=== PATIENT | female | born 1985 | race Hispanic/Latino ===

== ENCOUNTER 2017-06-30 08:21 | Inpatient (IN) | payer MEDICAID ==
[2017-06-30] MEDS ORDERED: BRETHINE SUB-Q PRN (08:53)
[2017-06-30] MEDS ORDERED: SUBLIMAZE IV PRN (08:53)
[2017-06-30] MEDS ORDERED: ePHEDrine SULFATE IV PRN (08:53)
[2017-06-30] MEDS ORDERED: MINERAL OIL PO PRN (08:53)
[2017-06-30] MEDS ORDERED: PITOCin/NS 20 UNIT/1000ML DRIP 20 UNITS/1,000 ML BAG IV SCH (09:00)
--- NOTE | 2017-06-30 09:03 | History and Physical Report ---
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 Infection History Hx of STD: none HIV Risk Eval: no Hepatitis B Risk Eval: low risk Personal hx. of genital herpes: no Partner hx. of genital herpes: no Rash, Viral, or Febrile illness since last LMP? no Varicella/Chicken Pox Status: Previous Disease TB Risk: no Genetic History Congenital Heart Defect: Mom: no Dad: no Marcin Disease: Mom: no Dad: no Thalassemia Mom: no Dad: no Neural Tube Defect Mom: no Dad: no Down's Syndrome Mom: no Dad: no Harley-Sachs Mom: no Dad: no Sickle Cell Disease/Trait Mom: no Dad: no Hemophilia Mom: no Dad: no Muscular Dystrophy Mom: no Dad: no Cystic Fibrosis Mom: no Dad: no [place] Chorea Mom: no Dad: no Mental Retardation Mom: no Dad: no Fragile X Mom: no Dad: no Other Genetic/Chromosomal Disorder Mom: no Dad: no Child w/other defect Mom: no Dad: no Enviromental Exposures Xray Exposure: no Medication, drug, or alcohol use since LMP: no Chemical/Other Exposure: no Exposure to Cat Liter: no Hx of Parvovirus (Fifth Disease): no 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 Current Allergies (reviewed today): No known allergies Past History Past Medical History: asthma Past Surgical History: other (see HPI) - Obstetrical History Expected Date of Delivery: 06/18/17 Actual Gestation: 41 Week(s) 5 Day(s) : 1 Para: 0 Hx # Term Pregnancies: 0 Number of Pregnancies: 0 Spontaneous Abortions: 0 Induced : 0 Number of Living Children: 0 Medications and Allergies Allergies Allergy/AdvReac Type Severity Reaction Status Date / Time adhesive Allergy Itching Verified 06/30/17 10:17 Home Medications Medication Instructions Recorded Confirmed Last Taken Type No Known Home Medications [No 06/30/17 06/30/17 Unknown History Reported Home Medications] Active Meds: Active Medications Ephedrine Sulfate (Ephedrine Sulfate) 10 mg IV Q2M PRN PRN Reason: Hypotension Review of Systems All systems: negative - Vital Signs Vital signs: Vital Signs Pulse BP 69 111/66 06/30/17 08:57 06/30/17 08:57 Temp Pulse Resp BP Pulse Ox 69 111/66 06/30/17 08:57 06/30/17 08:57 - Physical Exam Breasts: Positive: normal Cardiovascular: Regular rate Lungs: Positive: Clear to auscultation, Normal air movement Abdomen: Positive: normal appearance, soft, normal bowel sounds Genitourinary (Female): Positive: normal external genitalia, normal perenium Vulva: both: normal Vagina: Positive: normal moisture Uterus: Positive: normal size, normal contour Extremities: Positive: normal Deep Tendon Reflex Grade: Normal +2 - Obstetrical FHR: category 1 Uterine Contraction Monitor Mode: External Cervical Dilatation: 0 station: 30 Uterine Contraction Pattern: Irregular Uterine Tone Measurement Phase: Resting Uterine Contraction Intensity: Mild Results Result Diagrams: 06/30/17 Unknown All other labs normal. Assessment and Plan 31y/o @ 41+5 weeks, GBS neg. u/s EFW 06/26/17 7#1oz. cervix unfavorable so will do low dose pit today, allow patient to have dinner and if no change will do cervidil for cervical ripening tonight. Discussed serial induction expectations. All questions address, patient and family verbalize understanding. . - Patient Problems (1) 41 weeks gestation of Current Visit: Yes Status: Acute
[2017-06-30] MEDS ORDERED: XYLOCAINE 2% INFILTRATI ONE (10:16)
[2017-06-30] MEDS ORDERED: ZOFRAN IV PRN (10:17)
[2017-06-30] MEDS: LACTATED RINGERS 1,000 ML IV SCH ×2 (10:29→19:33)
[2017-06-30] MEDS: PITOCin/NS 30 UNIT/500ML 30 UNITS/500 ML BAG IV SCH ×2 (10:36→11:22)
[2017-06-30 11:00] LABS: Hematocrit 37.3 % (30.3-42.9); Hemoglobin 12.7 gm/dl (10.1-14.3); Mean Corpuscular HGB Conc 34 % (30-34); Mean Corpuscular Hemoglobin 31 pg (28-32); Mean Corpuscular Volume 90 fl (79-97); Platelet Count 240 K/mm3 (140-440); Red Blood Count 4.14 M/mm3 (3.65-5.03); Red Cell Distribution Width 13.4 % (13.2-15.2)
[2017-06-30] MEDS ORDERED: AMBIEN PO PRN (16:18)
[2017-06-30] MEDS ORDERED: CERVIDIL VG ONE (17:00)
--- NOTE | 2017-07-01 04:02 | Event Note ---
Date: 07/01/17 patient ctx [id number] and very uncomfortable. cervidil accidentally pulled when patient was moving in bed. Plan for patient to do AM care and regular breakfast with reactive tracing, then re-start pitocin this AM..
[2017-07-01] MEDS ORDERED: PITOCin/NS 30 UNIT/500ML 30 UNITS/500 ML BAG IV SCH (08:00)
[2017-07-01] MEDS: LACTATED RINGERS 1,000 ML IV SCH (09:21)
[2017-07-01] MEDS: PITOCin/NS 30 UNIT/500ML 30 UNITS/500 ML BAG IV SCH ×4 (10:20→12:13)
--- NOTE | 2017-07-01 10:22 | Progress Note ---
Subjective - Subjective Date of service: 07/01/17 Principal diagnosis: G1 IUP @ 41 wk+6d, IOL Interval history: Cervidil came out at 0400, pt was nilo frequently, now in irregular pattern. My exam EFW 7-8#, cx post to mid-pos, 1.5 cm, 80%, -4. Discussed with patient and family that baby up high and may not be coming down in proper position. Mentioned that c/s rate in this clinical scenario is high, at least 50% but that we will increase Pitocin and attempt to rupture membranes, which is not possible at this time. They expressed understanding. Objective - Vital Signs Vital Signs: Vital Signs - 12hr 07/01/17 07/01/17 07/01/17 00:34 00:38 06:15 Temperature 98 F 98.6 F Pulse Rate 60 60 62 Respiratory 16 16 Rate Blood Pressure 105/63 Blood Pressure 105/63 101/60 [Right] O2 Sat by Pulse Oximetry 07/01/17 07/01/17 07/01/17 06:18 08:37 08:43 Temperature 97.2 F L Pulse Rate 62 65 65 Respiratory 16 Rate Blood Pressure 101/60 111/62 Blood Pressure 111/62 [Right] O2 Sat by Pulse 98 Oximetry - Labs Labs: Laboratory Results - last 24 hr 06/30/17 06/30/17 06/30/17 09:40 09:40 Unknown WBC 9.6 RBC 4.14 Hgb 12.7 Hct 37.3 MCV 90 MCH 31 MCHC 34 RDW 13.4 Plt Count 240 RPR Nonreactive Blood Type O POSITIVE Antibody Screen Negative
[2017-07-01] MEDS: SUBLIMAZE IV PRN ×2 (14:21→16:33)
--- NOTE | 2017-07-01 14:48 | Event Note ---
Date: 07/01/17 Now 5-6, 100%, -3, anterior after about 5 hours (prior check at 1000 was 1.5)-- attempted AROM but no fluid obtained ?. So far making good progress, does not want epidural at present.
--- NOTE | 2017-07-01 17:07 | Anesthesia Consultation ---
Anesthesia Consult and Med Hx - Airway Anesthetic Teeth Evaluation: Good ROM Head & Neck: Adequate Mental/Hyoid Distance: Adequate Mallampati Class: Class II Intubation Access Assessment: Good - Pulmonary Exam CTA: Yes - Cardiac Exam Cardiac Exam: RRR - Pre-Operative Health Status ASA Pre-Surgery Classification: ASA2 Proposed Anesthetic Plan: Epidural, Spinal - Pulmonary Hx Asthma: No COPD: No Hx Pneumonia: No - Cardiovascular System Hx Hypertension: No - Central Nervous System Hx Seizures: No Hx Psychiatric Problems: No - Endocrine Hx Renal Disease: No Hx End Stage Renal Disease: No Hx Hypothyroidism: No Hx Hyperthyroidism: No - Hematic Hx Anemia: No Hx Sickle Cell Disease: No - Other Systems Hx Alcohol Use: No
[2017-07-01] MEDS ORDERED: ePHEDrine SULFATE IV PRN (17:08)
[2017-07-01] MEDS ORDERED: NARCAN 2 MG/2 ML IV PRN (17:08)
--- NOTE | 2017-07-01 17:08 | Anesthesia Day of Surgery ---
Anesthesia Day of Surgery - Day of Surgery Patient Examined: Yes Patient H&P Reviewed: Yes Patient is NPO: Yes
[2017-07-01] MEDS ORDERED: XYLOCAINE 2% INFILTRATI ONE (17:17)
[2017-07-01] MEDS ORDERED: fentaNYL-BUPIV 2 MCG/ML-0.125% 200 MCG/100 ML BAG EPIDURAL SCH (18:00)
--- NOTE | 2017-07-01 18:00 | Procedure Note ---
OB Delivery Note - Delivery Date of Delivery: 07/01/17 Surgeon: KVNG CORTES Estimated blood loss: 500cc - Vaginal Delivery presentation: vertex Delivery position: OA Delivery induction: misoprostol Delivery augmentation: rupture of membranes, pitocin Delivery monitor: external FHT, external uterine Route of delivery: (mild dystocia, responded to traction and Arya) Delivery placenta: spontaneous Delivery cord: 3 umbilical vessels (tight cord around shoulder) Episiotomy: midline Delivery laceration: 2nd degree Delivery repair: vicryl (2-0 and 3-0) Anesthesia: local Delivery comments: mild shoulder dystocia, exascerbated by tight shoulder cord. Moderate bright red bleeding prior to del but I was not able to find any source for this as cervix and vaginal side taylor had no tears but lower vagina had abrasions. - Infant A at 1 minute: 7 at 5 minutes: 9 Infant Gender: Male (7#8oz, resp came and suctioned out baby who was a little stunned)
[2017-07-01] MEDS ORDERED: BENADRYL PO PRN (18:03)
[2017-07-01] MEDS ORDERED: DULCOLAX PR PRN (18:03)
[2017-07-01] MEDS ORDERED: PHENERGAN PO PRN (18:03)
[2017-07-01] MEDS ORDERED: LANSINOH TP PRN (18:03)
[2017-07-01] MEDS ORDERED: TUCKS PAD TP PRN (18:03)
[2017-07-01] MEDS ORDERED: MILK OF MAGNESIA PO PRN (18:03)
[2017-07-01] MEDS ORDERED: ZOFRAN IV PRN (18:03)
[2017-07-01] MEDS ORDERED: TYLENOL PO PRN (18:03)
[2017-07-01] MEDS ORDERED: PHENERGAN PR PRN (18:03)
[2017-07-01] MEDS ORDERED: NORCO 5/325 PO PRN (18:03)
[2017-07-01] MEDS ORDERED: SODIUM CHLORIDE FLUSH SYRINGE 10 ML IV SCH (19:00)
[2017-07-01] MEDS: MOTRIN PO SCH (23:35)
[2017-07-01] MEDS: COLACE PO SCH (23:35)
[2017-07-02 05:23] LABS: Hemoglobin 10.4 gm/dl (10.1-14.3)
[2017-07-02 05:31] LABS: Hematocrit 31.9 % (30.3-42.9)
[2017-07-02] MEDS: MOTRIN PO SCH ×2 (05:33→12:44)
[2017-07-02] MEDS ORDERED: BOOSTRIX IM ONE (06:00)
[2017-07-02] MEDS: COLACE PO SCH (10:19)
--- NOTE | 2017-07-02 12:12 | Progress Note ---
Assessment and Plan - Patient Problems (1) Vaginal delivery Current Visit: Yes Status: Acute (2) Shoulder (girdle) dystocia during labor and delivery, delivered Current Visit: Yes Status: Acute Plan to address problem: easily relieved by conventional measures (3) 41 weeks gestation of Current Visit: Yes Status: Acute Subjective - Subjective Date of service: 07/02/17 Principal diagnosis: G1 IUP @ 41 wk+6d, IOL Interval history: Patient did well . Maternal blood type O positive, Post- hematocrit 31.9 Patient reports: appetite normal, voiding normally, pain well controlled, ambulating normally [place]: doing well, nursing well Objective - Vital Signs Latest vital signs: Vital Signs Temp Pulse Resp BP BP Pulse Ox 07/02/17 07:31 98.0 F 61 20 96/57 96 07/02/17 04:19 98.1 F 58 L 18 98/52 07/02/17 00:04 98.6 F 68 18 104/53 07/01/17 20:06 98.3 F 58 L 20 107/60 07/01/17 19:31 60 98/55 07/01/17 19:16 63 101/55 07/01/17 19:01 61 98/53 07/01/17 18:46 65 99/57 07/01/17 18:31 64 99/57 07/01/17 18:16 61 92/50 07/01/17 18:02 77 92/54 07/01/17 17:47 77 111/56 Intake and Output 07/01/17 07/02/17 07/02/17 23:59 07:59 15:59 Intake Total 360 600 Output Total 250 600 Balance 110 0 Intake: Oral 240 Intake, Free Water 360 360 Output: Urine 250 600 Void 250 600 Other: Total, Intake Amount 240 Total, Output Amount 250 600 Estimated Blood Loss 300 - Exam Breasts: Present: Abdomen: Present: normal appearance, soft Uterus: Present: firm Extremities: Present: normal
[2017-07-02 16:54] VITALS: BP 117/67
--- NOTE | 2017-07-02 22:10 | Discharge Summary ---
Providers - Providers Date of Admission: 06/30/17 08:21 Date of discharge: 07/02/17 Attending physician: DELFINO ALVAREZ 07/01/17 18:06 Consult to Cma Or Lpn [CONS] Routine Reason For Exam: assistance with , SNS Primary care physician: DELFINO ALVAREZ Hospitalization Reason for admission: induction of labor, other (post dates 41 weeks) Delivery: Procedure details: had mild shoulder dystocia with no epidural and 7#80z baby, resolved with traction and Arya. Episiotomy: midline Laceration: 2nd degree Other procedures: none complications: none Discharge diagnosis: IUP at term delivered (postdates induction) [place] baby: male Hospital course: did well and desired to go home after 24 hours. Condition at discharge: Good Disposition: DC-01 TO HOME OR SELFCARE - Discharge Diagnoses (1) Vaginal delivery Status: Acute (2) Shoulder (girdle) dystocia during labor and delivery, delivered Status: Acute (3) 41 weeks gestation of Status: Acute Plan - Discharge Medications Prescriptions: Ibuprofen [Motrin 600 MG tab] 600 mg PO Q8H PRN #30 tablet PRN Reason: Pain Lidocain2.5%/Prilocai2.5% [Emla] 5 gm TP 1XW #1 tube - Provider Discharge Summary Activity: routine, no sex for 6 weeks, no heavy lifting 4 weeks, no strenuous exercise Diet: routine Instructions: routine Additional instructions: [] Smoking cessation referral if applicable(refer to patient education folder for contact #) [] Refer to [facility]'s [facility] Booklet Call your doctor immediately for: * Fever > 100.5 * Heavy vaginal bleeding ( >1 pad per hour) * Severe persistent headache * Shortness of breath * Reddened, hot, painful area to leg or breast * Drainage or odor from incision. * Keep incision clean and dry at all times and follow doctor's instructions regarding bathing/showering - Follow up plan Follow up: DELFINO ALVAREZ MD [Primary Care Provider] - 7 Days Forms: [facility] Discharge Summary
== END 2017-07-02 19:45 | disposition home or self-care (01) | DRG 775 ==
LOC: LD 08:21 → OB 07-01 20:04
PROVIDERS: ADMIT Obstetrics & Gynecology; ATTEND Obstetrics & Gynecology
PROC: 10E0XZZ Delivery of Products of Conception, External Approach (ICD-10-PCS; principal; 2017-07-01)
PROC: 0KQM0ZZ Repair Perineum Muscle, Open Approach (ICD-10-PCS; 2017-07-01)
PROC: 0W8NXZZ Division of Female Perineum, External Approach (ICD-10-PCS; 2017-07-01)
DX: O48.0 Post-term pregnancy (principal); O66.0 Obstructed labor due to shoulder dystocia; J45.909 Unspecified asthma, uncomplicated; O70.1 Second degree perineal laceration during delivery; O99.52 Diseases of the respiratory system complicating childbirth; Z37.0 Single live birth; Z3A.41 41 weeks gestation of pregnancy
CPT/HCPCS: 36415; 85014; 85018; 85027; 86592; 86850; 86900; 86901; 90471; 90715; J2590; J3010; J7120